=== PATIENT | female | born 1995 | race Caucasian/White ===

== ENCOUNTER 2017-01-15 23:24 | Emergency (ER) | payer BC ==
[~2017-01-15] VITALS: Ht 147.3 cm; Wt 46.7 kg
[2017-01-15 23:25] VITALS: BP 114/75; PULSE 91; RESP 20; TEMP 98.6; O2SAT 98
--- NOTE | 2017-01-16 00:06 | NUR ---
Patient to ER bed 1 to gown for evaluation. Side rails up. Report given to Erin BAH.
--- NOTE | 2017-01-16 00:15 | NUR ---
Pt brought in by mom in stable condition. Pt c/o sore throat, congestion, tightness in her chest x3 days. Pt c/o bilat ear pain. Pt stated that she has been medicating w/ OTC cough medication and allergy medication. Pt stated that she does have a hx of asthma but has not used her inhaler in 1 month. Pt does appear to be in any distress at this time, will continue to monitor
--- NOTE | 2017-01-16 00:39 | NUR ---
ER at bedside examining patient.
[2017-01-16 01:25] LABS: INFLUENZA A&B ANTIGEN SCREEN NEGATIVE FOR A & B (NEGATIVE); STREPTOCOCCUS A SCREEN (RAPID) NEGATIVE (NEGATIVE)
[2017-01-16 03:25] VITALS: BP 114/75; PULSE 91; RESP 20; TEMP 98.6; O2SAT 98
--- NOTE | 2017-01-16 03:25 | NUR ---
Patient given written and verbal discharge instructions and verbalizes understanding. ER MD Salmon discussed with patient the results and treatment provided. Patient in stable condition. ID arm band removed. Rx of Cortisporin given. Patient educated on pain management and to follow up with PMD. Pain Scale 2/10. Opportunity for questions provided and answered.
== END 2017-01-16 03:25 | disposition home or self-care (01) ==
LOC: SED 23:24
DX: J06.9 Acute upper respiratory infection, unspecified (principal); H60.91 Unspecified otitis externa, right ear; J45.909 Unspecified asthma, uncomplicated
CPT/HCPCS: 36415; 86403; 86710; 87081; 99284